=== PATIENT | male | born 1995 | race Asian ===

== ENCOUNTER 2018-05-24 11:35 | Emergency (ER) | payer BC ==
[~2018-05-24] VITALS: Ht 170.2 cm; Wt 68.0 kg
[2018-05-24] MEDS ORDERED: IBUPROFEN 600 MG TABLET PO ONE ×2 (12:08→12:30)
[2018-05-24 13:06] VITALS: BP 131/74
--- NOTE | 2018-05-24 13:27 | NUR ---
Patient discharged to home in stable condition. Written and verbal after care instructions given. Patient verbalizes understanding of instruction.
== END 2018-05-24 13:29 | disposition home or self-care (01) ==
LOC: ER 11:37
DX: J02.8 Acute pharyngitis due to other specified organisms (principal); Z88.6 Allergy status to analgesic agent
CPT/HCPCS: 86403-TC; 87070-TC; 87400; A4606; Z7610